=== PATIENT | male | born 1985 | race Two or more races ===

== ENCOUNTER 2019-05-06 07:46 | Emergency (ER) | payer SELFPAY ==
[~2019-05-06] VITALS: Ht 160 cm; Wt 68.0 kg
[2019-05-06 07:53] VITALS: BP 134/97
== END 2019-05-06 08:29 | disposition home or self-care (01) ==
LOC: ER 07:46
DX: J03.80 Acute tonsillitis due to other specified organisms (principal); B97.89 Other viral agents as the cause of diseases classified elsewhere